=== PATIENT | female | born 2000 | race Caucasian/White ===

== ENCOUNTER → 2021-09-27 16:15 | Observation (INO) ==
[2021-09-27 14:14] LABS: Bilirubin,Urine Negative (Negative); Blood,Urine Large (Negative); Clarity,Urine Ex.Turbid (Clear); Color,Urine Yellow (Yellow); Glucose,Urine (UA) Normal (Normal); Ketones,Urine 60 mg/dL (Negative); Leukocyte Esterase,Urine Large (Negative); Mucus,Urine Few per lpf (None-Few); Nitrite,Urine Positive (Negative); PH,Urine 6.5 pH Units (5.0-8.0); Protein,Urine >=300 mg/dL (Neg-Trace); RBC,Urine TNTC per hpf (0-3); Specific Gravity,Urine 1.015 (1.010-1.025); Urobilinogen,Urine Normal (Normal); WBC,Urine TNTC per hpf (0-3)
== END | disposition home or self-care (01) ==
LOC: 1NENULAB
PROVIDERS: ADMIT Registered Nurse; ATTEND Registered Nurse

== ENCOUNTER 2021-12-01 14:55 | Inpatient (IN) ==
[2021-12-01 13:10] LABS: Basophils % 0.2 %; Eosinophils % 0.1 %
[2021-12-01 13:12] LABS: Hematocrit 37.6 % (35.3-44.9); Hemoglobin 12.1 g/dL (11.5-15.4); Immature Granulocytes % 0.2 % (0-4); Immature Platelets 19.7 % (1.1-6.1); Lymphocytes % 20.8 %; Mean Corpuscular HGB Conc 32.2 g/dL (31.6-35.5); Mean Corpuscular Hemoglobin 27.7 pg (28.0-33.3); Mean Platelet Volume 13.4 fL (9.4-12.4); Monocytes # 0.5 K/mcL (0.0-1.3); Monocytes % 5.6 %; Neutrophils # 6.9 K/mcL (1.6-8.9); Platelet Count 146 K/mcL (140-400); Red Blood Count 4.37 M/mcL (3.82-4.97); Red Cell Distribution Width 13.3 % (11.5-14.5); Segmented Neutrophils % 73.1 %; White Blood Count 9.5 K/mcL (4.3-11.1)
[2021-12-01 13:46] LABS: Creatinine,Urine 41 mg/dL; Protein/Creatinine Ratio,Urine 0.76 mg/mg (0.00-0.20)
[2021-12-01 14:29] LABS: Alanine Aminotransferase 13 Units/L (7-52); Aspartate Amino Transferase 26 Units/L (13-39); BUN/Creatinine Ratio 12 (6-26); Blood Urea Nitrogen 6 mg/dL (6-20); Lactate Dehydrogenase 283 Units/L (140-271); Uric Acid 4.4 mg/dL (2.3-7.6)
[~2021-12-01 14:55] MED LIST: *HR* Nalbuphine 10 MG/ML AMPUL IV PRN; Famotidine 20 MG/2 ML VIAL IVP PRN; Lidocaine 1% 20 ML MDV INFILT PRN; Metoclopramide 10 MG/2 ML VIAL IVP PRN; Naloxone 0.4 MG/ML INJ IVP PRN
[2021-12-01] MEDS ORDERED: Ringers Solution, Lactated 1,000 ML IVC SCH (15:00)
[2021-12-01] MEDS ORDERED: Penicillin G Potassium 5,000,000 UNIT in 0.9 % Sodium Chloride Mini Bag 100 ML IVPB ONE (15:14)
[2021-12-01] MEDS ORDERED: Oxytocin 30 UNIT/503 ML BAG IVC SCH (15:15)
[2021-12-01 15:29] LABS: Amphetamine Screen,Urine Negative ng/mL (Cutoff=1000); Barbiturate Screen,Urine Negative ng/mL (Cutoff=200); Benzodiazepines Screen,Urine Negative ng/mL (Cutoff=200); Cannabinoid Screen,Urine Negative ng/mL (Cutoff = 50); Cocaine Screen,Urine Negative ng/mL (Cutoff= 300); Opiate Screen,Urine Negative ng/mL (Cutoff=300); Phencyclidine Screen,Urine Negative ng/mL (Cutoff=25)
[2021-12-01] MEDS ORDERED: Penicillin G Potassium 2,500,000 UNIT/105 ML MLS IVPB SCH (19:15)
[2021-12-02] MEDS ORDERED: Lanolin 7 G OINT...G. TP PRN (04:51)
[2021-12-02] MEDS ORDERED: Oxytocin 30 UNIT/503 ML BAG IVC SCH (04:51)
[2021-12-02] MEDS ORDERED: Ondansetron ODT 4 MG TAB.RAPDIS SL PRN (04:51)
[2021-12-02] MEDS ORDERED: Measles/Mumps/Rubella Vacc 0.5 ML VIAL SQ PRN (04:51)
[2021-12-02] MEDS ORDERED: Benzocaine/Menthol 56 GM AEROSOL SPRAY TP PRN (04:51)
[2021-12-02] MEDS: Acetaminophen 325 MG TABLET PO SCH ×3 (10:01→17:04)
[2021-12-02] MEDS: Ibuprofen 600 MG TABLET PO SCH ×2 (10:02→17:04)
[2021-12-02] MEDS: NIFEdipine XL (24 HR) 30 MG TAB.ER.24 PO SCH (10:02)
[2021-12-02] MEDS: Prenatal Vit/FA 1 EACH TABLET PO SCH (10:02)
[2021-12-02 22:33] LABS: Basophils % 0.1 %; Immature Granulocytes % 0.4 % (0-4); Immature Platelets 23.6 % (1.1-6.1); Lymphocytes # 1.3 K/mcL (0.6-4.6); Lymphocytes % 7.1 %; Mean Corpuscular HGB Conc 31.3 g/dL (31.6-35.5); Mean Corpuscular Hemoglobin 28.6 pg (28.0-33.3); Mean Corpuscular Volume 91.4 fL (83.0-100.0); Mean Platelet Volume 13.9 fL (9.4-12.4); Monocytes # 0.8 K/mcL (0.0-1.3); Monocytes % 4.5 %; Platelet Count 132 K/mcL (140-400); Segmented Neutrophils % 87.9 %; White Blood Count 18.4 K/mcL (4.3-11.1)
[2021-12-02 22:34] LABS: Neutrophils # 16.2 K/mcL (1.6-8.9)
[2021-12-02 22:38] LABS: Alanine Aminotransferase 12 Units/L (7-52); Aspartate Amino Transferase 23 Units/L (13-39); BUN/Creatinine Ratio 9 (6-26); Blood Urea Nitrogen 5 mg/dL (6-20); Lactate Dehydrogenase 271 Units/L (140-271); Uric Acid 4.6 mg/dL (2.3-7.6)
[2021-12-03] MEDS: Acetaminophen 325 MG TABLET PO SCH ×2 (03:22→05:39)
[2021-12-03] MEDS: Ibuprofen 600 MG TABLET PO SCH ×2 (03:22→05:39)
[2021-12-03 06:19] LABS: Basophils % 0.1 %; Eosinophils % 0.3 %; Hematocrit 27.8 % (35.3-44.9); Hemoglobin 9.2 g/dL (11.5-15.4); Immature Granulocytes % 0.3 % (0-4); Immature Platelets 11.6 % (1.1-6.1); Lymphocytes # 2.1 K/mcL (0.6-4.6); Lymphocytes % 22.2 %; Mean Corpuscular HGB Conc 33.1 g/dL (31.6-35.5); Mean Corpuscular Hemoglobin 28.6 pg (28.0-33.3); Mean Corpuscular Volume 86.3 fL (83.0-100.0); Mean Platelet Volume 11.6 fL (9.4-12.4); Monocytes # 0.5 K/mcL (0.0-1.3); Monocytes % 5.4 %; Neutrophils # 6.6 K/mcL (1.6-8.9); Platelet Count 111 K/mcL (140-400); Red Blood Count 3.22 M/mcL (3.82-4.97); Red Cell Distribution Width 13.6 % (11.5-14.5); Segmented Neutrophils % 71.7 %; White Blood Count 9.3 K/mcL (4.3-11.1)
[2021-12-03 06:34] LABS: Alanine Aminotransferase 17 Units/L (7-52); Aspartate Amino Transferase 30 Units/L (13-39); BUN/Creatinine Ratio 9 (6-26); Blood Urea Nitrogen 5 mg/dL (6-20); Lactate Dehydrogenase 245 Units/L (140-271); Uric Acid 5.3 mg/dL (2.3-7.6)
[2021-12-03] MEDS: Prenatal Vit/FA 1 EACH TABLET PO SCH (08:23)
[2021-12-03] MEDS: NIFEdipine XL (24 HR) 30 MG TAB.ER.24 PO SCH (08:23)
[2021-12-03 10:47] VITALS: TEMP 97.7; O2SAT 98
[2021-12-03] MEDS ORDERED: NIFEdipine XL (24 HR) 30 MG TAB.ER.24 PO ONE (14:26)
[2021-12-03 14:41] VITALS: PULSE 101
[2021-12-03 16:18] VITALS: BP 131/92
[2021-12-04] MEDS ORDERED: NIFEdipine XL (24 HR) 30 MG TAB.ER.24 PO SCH (09:00)
[2021-12-04] MEDS ORDERED: NIFEdipine XL (24 HR) 60 MG TAB.ER.24 PO SCH (09:00)
== END 2021-12-03 07:30 | disposition home or self-care (01) | DRG 560 ==
LOC: 1NENULAB → 1NENUOBS 12-02 04:27
PROVIDERS: ADMIT Advanced Practice Midwife; ATTEND Advanced Practice Midwife